=== PATIENT | female | born 1970 | race Caucasian/White ===

== ENCOUNTER 2016-10-26 12:17 | Emergency (ER) | payer SELFPAY ==
[2016-10-26 12:37] VITALS: TEMP 97.5
--- NOTE | 2016-10-26 13:08 | ED ---
URI HPI - General Chief Complaint: Upper Respiratory Infection Stated Complaint: Cough, High Heart Rate Time Seen by Provider: 10/26/16 12:56 Source: patient, RN notes reviewed Mode of arrival: ambulatory Limitations: no limitations - History of Present Illness Initial Comments: 46-year-old female presents emergency Department chief complaint of cough congestion for one month. Patient states her symptoms are primarily worse in the morning and get better throughout the day. She states that she does cough up some phlegm. Patient does have some seasonal ALLERGIES in which she uses Flonase for. Patient denies any fever, chills, shortness breath, ear pain, headache or dizziness. She does have mild sore throat from the postnasal drainage. Patient states that she has also on her of her metoprolol. She did take it today heart rate is 60 at this time she has no chest pain no palpitations. That she is out of it because she is currently traveling in her primary care physician is from [place]. Patient states she takes metoprolol tartate 50 mg once daily - Related Data Previous Rx's Medication Instructions Recorded Loratadine [Claritin] 10 mg PO DAILY #30 tab 10/26/16 Metoprolol Tartrate [Lopressor] 50 mg PO DAILY #30 tab 10/26/16 Allergies Allergy/AdvReac Type Severity Reaction Status Date / Time No Known Allergies Allergy Verified 10/26/16 12:32 Review of Systems ROS Statement: Those systems with pertinent positive or pertinent negative responses have been documented in the HPI. ROS Other: All systems not noted in ROS Statement are negative. Past Medical History Additional Past Medical History / Comment(s): tachycardia History of Any Multi-Drug Resistant Organisms: None Reported Past Surgical History: No Surgical Hx Reported Past Psychological History: Anxiety Smoking Status: Never smoker Past Alcohol Use History: Occasional Past Drug Use History: None Reported General Exam Limitations: no limitations General appearance: alert, in no apparent distress Head exam: Present: atraumatic, normocephalic, normal inspection Eye exam: Present: normal appearance, PERRL, EOMI. Absent: scleral icterus, conjunctival injection, periorbital swelling ENT exam: Present: mucous membranes moist, TM's normal bilaterally, normal external ear exam. Absent: normal oropharynx (Postnasal drainage) Neck exam: Present: normal inspection, full ROM. Absent: tenderness, meningismus, lymphadenopathy Respiratory exam: Present: normal lung sounds bilaterally. Absent: respiratory distress, wheezes, rales, rhonchi, stridor Cardiovascular Exam: Present: regular rate, normal rhythm, normal heart sounds. Absent: systolic murmur, diastolic murmur, rubs, gallop, clicks Neurological exam: Present: alert, oriented X3, CN II-XII intact Skin exam: Present: warm, dry, intact, normal color. Absent: rash Course Vital Signs 10/26/16 12:32 Temperature 97.5 F L Pulse Rate 60 Respiratory 17 Rate Blood Pressure 94/51 O2 Sat by Pulse 98 Oximetry Medical Decision Making - Medical Decision Making 46-year-old female presented for medication refill and cough symptoms for one month. This most likely related to ALLERGIES. She is currently takes Flonase but was started on Claritin at this time. Patient will be given refill of her medication but she is advised to check her blood pressure and heart rate prior to taking her medication as she is not hypertensive or tachycardic at this time. Disposition Clinical Impression: Cough, Environmental allergies, Medication refill Disposition: HOME SELF-CARE Condition: Stable Instructions: Acute Cough (ED) Additional Instructions: Please return to the Emergency Department if symptoms worsen or any other concerns. Prescriptions: Loratadine [Claritin] 10 mg PO DAILY #30 tab Metoprolol Tartrate [Lopressor] 50 mg PO DAILY #30 tab Referrals: Nonstaff,Physician [Primary Care Provider] - 1-2 days Time of Disposition: 13:19
--- NOTE | 2016-10-26 13:14 | XR ---
EXAMINATION TYPE: XR chest 2V DATE OF EXAM: 10/26/2016 COMPARISON: NONE HISTORY: Productive cough. TECHNIQUE: Frontal and lateral views of the chest are obtained. FINDINGS: There is no focal air space opacity, pleural effusion, or pneumothorax seen. The cardiac silhouette size is within normal limits. The osseous structures are intact. IMPRESSION: No suspicious acute infiltrate.
[2016-10-26 13:25] VITALS: BP 97/59; PULSE 66; RESP 16
== END 2016-10-26 13:25 | disposition home or self-care (01) ==
LOC: EC 12:17
DX: T78.49XA Other allergy, initial encounter (principal); R05 Cough; Z76.0 Encounter for issue of repeat prescription
CPT/HCPCS: 71020; 99283